=== PATIENT | female | born 1955 | race Two or more races ===

== ENCOUNTER → 2017-11-16 11:09 | Outpatient (CLI) | payer BC, SELFPAY ==
[2017-11-22 11:54] LABS: HPV Reflexed? NOT INDICATED
== END ==
PROVIDERS: Visit Provider Obstetrics & Gynecology
DX: Z12.4 Encounter for screening for malignant neoplasm of cervix (principal)
CPT/HCPCS: 88175; G0145

== ENCOUNTER → 2018-11-21 10:11 | Outpatient (CLI) | payer BC, SELFPAY ==
[2018-11-26 12:10] LABS: HPV Reflexed? NOT INDICATED
== END ==
PROVIDERS: Visit Provider Obstetrics & Gynecology
DX: Z12.4 Encounter for screening for malignant neoplasm of cervix (principal)
CPT/HCPCS: 88175; G0145